=== PATIENT | male | born 2005 | race Caucasian/White ===

== ENCOUNTER 2024-06-05 02:17 | Inpatient (IN) | payer OTHER ==
[~2024-06-05] VITALS: Ht 167.6 cm; Wt 64.6 kg
[2024-06-05 03:01] LABS: BASO # 0.1 10^3/uL (0.0-0.2); BASO % 0.5 % (0.0-1.0); EOS # 0.2 10^3/uL (0.0-0.5); EOS % 2.1 % (0.0-3.0); HEMATOCRIT 41.3 % (42.0-52.0); HEMOGLOBIN 14.3 g/dl (13.5-17.5); LYMPH # 2.4 10^3/uL (1.5-5.0); LYMPH % 22.3 % (24.0-44.0); MEAN CORPUSCULAR HEMOGLOBIN 29.4 pg (27.0-33.0); MEAN CORPUSCULAR HGB CONC 34.6 g/dl (32.0-36.5); MEAN CORPUSCULAR VOLUME 84.8 fl (80.0-96.0); MONO # 0.9 10^3/uL (0.0-0.8); MONO % 8.5 % (2.0-8.0); NEUTROPHILS # 7.1 10^3/uL (1.5-8.5); NEUTROPHILS % 66.2 % (36.0-66.0); PLATELET COUNT, AUTOMATED 296 10^3/uL (150-450); RED BLOOD COUNT 4.87 10^6/uL (4.30-6.10); WHITE BLOOD COUNT 10.7 10^3/uL (4.0-10.0)
[2024-06-05 03:23] LABS: ETHYL ALCOHOL (ETHANOL) < 0.003 % (0.000-0.010)
[2024-06-05 03:25] LABS: ALBUMIN 4.7 G/DL (3.2-5.2); ALKALINE PHOSPHATASE 75 U/L (40-129); ALT/SGPT 14 U/L (7.0-40); AST/SGOT 16 U/L (<34); BILIRUBIN,DIRECT < 0.1 MG/DL (<0.4); BILIRUBIN,TOTAL 0.3 MG/DL (0.3-1.2); BLOOD UREA NITROGEN 9 MG/DL (9-23); CALCIUM LEVEL 8.7 MG/DL (8.5-10.1); CARBON DIOXIDE LEVEL 30 MMOL/L (20-31); CHLORIDE LEVEL 105 MMOL/L (98-107); CREATININE FOR GFR 0.87 MG/DL (0.70-1.30); GLUCOSE, FASTING 78 MG/DL (60-100); POTASSIUM SERUM 3.4 MMOL/L (3.5-5.1); SALICYLATE LEVEL < 3.0 MG/DL (<30); SODIUM LEVEL 146 MMOL/L (136-145)
[2024-06-05 03:34] LABS: AMPHETAMINES LEVEL URINE NEGATIVE (NEGATIVE); BARBITURATES URINE NEGATIVE (NEGATIVE); BENZODIAZEPINES URINE NEGATIVE (NEGATIVE)
[2024-06-05 03:35] LABS: CANNABINOIDS URINE NEGATIVE (NEGATIVE); COCAINE METABOLITE URINE NEGATIVE (NEGATIVE); METHADONE URINE NEGATIVE (NEGATIVE); OPIATES URINE NEGATIVE (NEGATIVE); PHENCYCLIDINE URINE NEGATIVE (NEGATIVE)
[2024-06-05 03:45] LABS: ABG BASE EXCESS 0.3 (-2.0-2.0); ABG HCO3 24.4 MMOL/L (22.0-26.0); ABG O2 SATURATION 97.8 % (95.0-99.0); ABG PARTIAL PRESSURE CO2 37.8 mmHg (35.0-45.0); ABG PARTIAL PRESSURE O2 96.2 mmHg (75.0-100.0); ABG STANDARD HCO3 24.8 MMOL/L. (22.0-26.0); ABG TOTAL CO2 25.6 MMOL/L (22.0-29.0); ABG pH (ARTERIAL) 7.428 UNITS (7.350-7.450)
[2024-06-05] MEDS: LIDOCAINE W/EPINEPHRINE 1% 20ML VIAL SC ONE (05:21)
[2024-06-05] MEDS: BACITRACIN OINTMENT 30GM TUBE TOP STA (05:21)
[2024-06-05] MEDS ORDERED: HOME MED LIST COMPLETE! XX SCH (13:40)
[2024-06-05 14:37] VITALS: BP 117/70; TEMP 96.9; O2SAT 98
[2024-06-05] MEDS ORDERED: MAALOX 30 ML SUSP *UDC PO PRN (14:55)
[2024-06-05] MEDS ORDERED: diphenhydrAMINE 25MG CAP PO PRN (14:55)
[2024-06-05] MEDS ORDERED: ACETAMINOPHEN 325 MG TAB PO PRN (14:55)
[2024-06-05] MEDS ORDERED: MOM 30ML SUSPENSION UDC PO PRN (14:55)
[2024-06-06 06:39] VITALS: BP 116/56; TEMP 97.1; O2SAT 99
[2024-06-06 14:51] VITALS: BP 104/60; TEMP 97.4; O2SAT 100
[2024-06-06] MEDS: predniSONE 20 MG TAB PO ONE (20:51)
[2024-06-07 06:15] VITALS: BP 90/52; TEMP 97.7; O2SAT 100
[2024-06-07] MEDS: SERTRALINE HCL 50 MG TAB PO SCH (14:37)
[2024-06-07 17:35] VITALS: BP 114/64; TEMP 97.7; O2SAT 98
[2024-06-07] MEDS: traZODone 50 MG TAB PO PRN (22:55)
[2024-06-08 06:38] VITALS: BP 112/55; TEMP 97.3; O2SAT 100
[2024-06-08] MEDS ORDERED: SERT50TA29 PO (12:41)
[2024-06-08] MEDS ORDERED: TRAZ-252 PO (12:41)
[2024-06-08 16:35] VITALS: BP 119/58; TEMP 98.1; O2SAT 98
[2024-06-09 06:52] VITALS: BP 125/58; TEMP 98.2; O2SAT 100
== END 2024-06-09 09:21 | disposition home or self-care (01) | DRG 881 ==
LOC: M ED 02:17 → EDBD 02:17 → M ED INP 13:00 → M PSY 13:52
PROVIDERS: ADMIT Psychiatry & Neurology Psychiatry; ATTEND Psychiatry & Neurology Psychiatry
DX: F32.A Depression, unspecified (principal); E87.1 Hypo-osmolality and hyponatremia; E87.6 Hypokalemia; F17.290 Nicotine dependence, other tobacco product, uncomplicated; T39.312A Poisoning by propionic acid derivatives, intentional self-harm, initial encounter; S61.512A Laceration without foreign body of left wrist, initial encounter; X78.9XXA Intentional self-harm by unspecified sharp object, initial encounter; Y92.133 Barracks on military base as the place of occurrence of the external cause; Y93.9 Activity, unspecified; Y99.8 Other external cause status; Z62.810 Personal history of physical and sexual abuse in childhood; Z62.811 Personal history of psychological abuse in childhood; Z81.1 Family history of alcohol abuse and dependence

== ENCOUNTER 2024-06-10 14:19 | Emergency (ER) | payer OTHER ==
[~2024-06-10] VITALS: Ht 167.6 cm; Wt 62.4 kg
[~2024-06-10 14:19] MED LIST: SERT50TA29 PO; TRAZ-252 PO
[2024-06-10 14:23] VITALS: BP 115/70; TEMP 97; O2SAT 98
== END 2024-06-10 15:49 | disposition home or self-care (01) ==
LOC: M ED 14:19
DX: Z48.02 Encounter for removal of sutures (principal); F32.A Depression, unspecified; F17.210 Nicotine dependence, cigarettes, uncomplicated

== ENCOUNTER 2025-02-18 23:57 | Inpatient (IN) | payer OTHER ==
[~2025-02-18] VITALS: Ht 167.6 cm; Wt 63.9 kg
[2025-02-19 00:53] LABS: KETONE, URINE AUTO RFX NEGATIVE (NEGATIVE); LEUKOCYTE ESTERASE UR AUTO RFX NEGATIVE (NEGATIVE); MUCUS, URINE RFX SMALL (NEGATIVE); NITRITE, URINE AUTO RFX NEGATIVE (NEGATIVE); RBC, URINE AUTO RFX 3 /HPF (0-3); SQUAM EPITHELIAL CELL UR AURFX 0 /HPF (0-6); WBC, URINE AUTO RFX 1 /HPF (0-3)
[2025-02-19 01:03] LABS: BASO # 0.1 10^3/uL (0.0-0.2); BASO % 0.7 % (0.0-1.0); EOS # 0.7 10^3/uL (0.0-0.5); EOS % 5.4 % (0.0-3.0); LYMPH # 3.2 10^3/uL (1.5-5.0); LYMPH % 26.4 % (24.0-44.0); MONO # 0.8 10^3/uL (0.0-0.8); MONO % 6.8 % (2.0-8.0); NEUTROPHILS # 7.4 10^3/uL (1.5-8.5); NEUTROPHILS % 60.2 % (36.0-66.0); PLATELET COUNT, AUTOMATED 280 10^3/uL (150-450)
[2025-02-19 01:36] LABS: CALCIUM LEVEL 9.7 MG/DL (8.5-10.1); CARBON DIOXIDE LEVEL 30 MMOL/L (20-31); CHLORIDE LEVEL 102 MMOL/L (98-107); CREATININE FOR GFR 0.93 MG/DL (0.70-1.30); GLOMERULAR FILTRATION RATE > 90.0 (>60); POTASSIUM SERUM 3.9 MMOL/L (3.5-5.1); SODIUM LEVEL 139 MMOL/L (136-145)
[2025-02-19 04:55] LABS: CPK CREATINE PHOSPHOKINASE 8220 U/L (46-171)
[2025-02-19] MEDS: NS (Normal Saline) 0.9% 1,000 ML IV ONE ×2 (05:20→10:12)
[2025-02-19 09:51] LABS: CPK CREATINE PHOSPHOKINASE 9203.0 U/L (46-171)
[2025-02-19] MEDS: NS (Normal Saline) 0.9% 1,000 ML IV SCH (10:20)
[2025-02-19] MEDS ORDERED: HOME MED LIST COMPLETE! XX SCH (10:25)
[2025-02-19 11:06] LABS: MAGNESIUM LEVEL 1.8 MG/DL (1.8-2.4)
[2025-02-19 11:43] VITALS: BP 127/69; TEMP 97.5; O2SAT 97
[2025-02-19 13:26] LABS: FREE T4 1.18 NG/DL (0.89-1.76)
[2025-02-19 13:42] LABS: CPK CREATINE PHOSPHOKINASE 9250.0 U/L (46-171)
[2025-02-19] MEDS: NS 0.45% 1,000 ML IV SCH (13:42)
[2025-02-19] MEDS: ENOXAPARIN 40 MG/0.4 ML SYRINGE (J1650 PER 10MG) SC SCH (13:43)
[2025-02-19 19:45] VITALS: BP 126/66; TEMP 98; O2SAT 100
[2025-02-20 03:13] VITALS: BP 112/54; TEMP 97; O2SAT 100
[2025-02-20 09:01] LABS: BASO # 0.1 10^3/uL (0.0-0.2); BASO % 0.5 % (0.0-1.0); EOS # 0.6 10^3/uL (0.0-0.5); EOS % 6.5 % (0.0-3.0); LYMPH # 2.4 10^3/uL (1.5-5.0); LYMPH % 26.6 % (24.0-44.0); MONO # 0.7 10^3/uL (0.0-0.8); MONO % 7.8 % (2.0-8.0); NEUTROPHILS # 5.3 10^3/uL (1.5-8.5); NEUTROPHILS % 58.2 % (36.0-66.0); PLATELET COUNT, AUTOMATED 271 10^3/uL (150-450)
[2025-02-20 09:25] LABS: ALT/SGPT 123 U/L (7.0-40); AST/SGOT 355 U/L (<34); CALCIUM LEVEL 9.4 MG/DL (8.5-10.1); CARBON DIOXIDE LEVEL 27 MMOL/L (20-31); CHLORIDE LEVEL 104 MMOL/L (98-107); CREATININE FOR GFR 0.79 MG/DL (0.70-1.30); GLOMERULAR FILTRATION RATE > 90.0 (>60); MAGNESIUM LEVEL 1.8 MG/DL (1.8-2.4); POTASSIUM SERUM 3.8 MMOL/L (3.5-5.1); SODIUM LEVEL 139 MMOL/L (136-145)
[2025-02-20 12:00] VITALS: BP 127/57; TEMP 98.1; O2SAT 99
[2025-02-20 20:00] VITALS: BP 128/62; TEMP 98.3; O2SAT 98
[2025-02-21 04:49] VITALS: BP 121/70; TEMP 97.2; O2SAT 98
[2025-02-21 07:59] LABS: BASO # 0.1 10^3/uL (0.0-0.2); BASO % 0.6 % (0.0-1.0); EOS # 0.6 10^3/uL (0.0-0.5); EOS % 5.7 % (0.0-3.0); LYMPH # 2.6 10^3/uL (1.5-5.0); LYMPH % 26.2 % (24.0-44.0); MONO # 0.8 10^3/uL (0.0-0.8); MONO % 8.3 % (2.0-8.0); NEUTROPHILS # 5.9 10^3/uL (1.5-8.5); NEUTROPHILS % 58.8 % (36.0-66.0); PLATELET COUNT, AUTOMATED 274 10^3/uL (150-450)
[2025-02-21 08:32] LABS: ALT/SGPT 134 U/L (7.0-40); AST/SGOT 388 U/L (<34); CALCIUM LEVEL 9.1 MG/DL (8.5-10.1); CARBON DIOXIDE LEVEL 27 MMOL/L (20-31); CHLORIDE LEVEL 104 MMOL/L (98-107); CREATININE FOR GFR 0.79 MG/DL (0.70-1.30); GLOMERULAR FILTRATION RATE > 90.0 (>60); MAGNESIUM LEVEL 1.6 MG/DL (1.8-2.4); POTASSIUM SERUM 3.9 MMOL/L (3.5-5.1); SODIUM LEVEL 140 MMOL/L (136-145)
[2025-02-21 08:42] LABS: CPK CREATINE PHOSPHOKINASE 13804 U/L (46-171)
[2025-02-21] MEDS ORDERED: MAGN400T33 PO (10:58)
[2025-02-21] MEDS: MAGNESIUM OXIDE 400 MG TAB PO SCH (11:07)
== END 2025-02-21 11:59 | disposition home or self-care (01) | DRG 558 ==
LOC: M ED 23:57 → M ED INP 02-19 10:16 → M MS4PR 02-19 11:21 → OBSVTOIN 02-20 11:12
PROVIDERS: ADMIT Internal Medicine Nephrology; ATTEND Internal Medicine Nephrology
DX: M62.82 Rhabdomyolysis (principal); F32.A Depression, unspecified; R74.01 Elevation of levels of liver transaminase levels; F10.90 Alcohol use, unspecified, uncomplicated; Z71.41 Alcohol abuse counseling and surveillance of alcoholic